=== PATIENT | female | born 1970 | race Caucasian/White ===

== ENCOUNTER 2017-12-09 13:45 | Emergency (ER) | payer SELFPAY ==
[~2017-12-09] VITALS: Ht 154.9 cm; Wt 62.3 kg
[2017-12-09 13:53] VITALS: BP 117/72
[2017-12-09] MEDS ORDERED: IBUP-1506 PO (13:55)
[2017-12-09] MEDS ORDERED: LEVO50 PO (13:55)
[2017-12-09] MEDS ORDERED: NAPR220C15 PO (13:55)
== END 2017-12-09 15:17 | disposition left against medical advice (07) ==
LOC: EMS 13:48
DX: M54.2 Cervicalgia (principal); Z53.21 Procedure and treatment not carried out due to patient leaving prior to being seen by health care provider